=== PATIENT | female | born 1970 ===

== ENCOUNTER 2024-01-03 17:04 | Outpatient (RCR) | payer OTHER, SELFPAY ==
--- NOTE | 2024-01-04 08:51 | OPREHPOC ---
Outpatient Therapy Plan of Care This is a Multidisciplinary Plan of Care that may contain components documented by all disciplines (PT, OT, and ST.) PT Problem 1 PT Problem #1 Knowledge Deficit PT Goal 1 Goal patient to demonstrate independence with HEP Target Visit 6 PT Problem 2 PT Problem #2 Pain PT Goal 1 Goal 1. Patient to report highest pain at 2/10 2. Patient to report ability to sleep with no disturbance due to neck pain Target Visit 12 PT Problem 3 PT Problem #3 Impaired Range of Motion PT Goal 1 Goal Patient to demonstrate 60 deg of B cervical ROM to improve ability to look over her shoulder to drive and carry on conversation Target Visit 12 PT Problem 4 PT Problem #4 Impaired Strength PT Goal 1 Goal 1. Patient to demonstrate 5/5 B UE strength to return to lifting her grandkids 2. Patient to demonstrate 4+/5 B LE strength to improve ability to walk prolonged distances Target Visit 12 PT Problem 5 PT Problem #5 Impaired Functional Mobil PT Goal 1 Goal 1. Demonstrate 20% improvement on both NDI and LEFS 2. Patient to report ability to participate with her grandchildren at PLOF 3. Patient to report ability to return to house hold tasks with no numbness at the R foot Target Visit 12
--- NOTE | 2024-01-04 08:51 | PTOPEVAL1 ---
Assessment and note entered by Nori Solano DPT Evaluation Information Assessment Status Evaluation Diagnosis neck pain, R LE pain Onset 12/13/23 Subjective Information Patient reports in October her chimney collapsed. patient reports the bricks and plaster fell on her and then as she was trying to get out of the room she fell. she reports her worst pain is in the neck but she is also getting tingling and numbness in the R LE. She reports she has also been having some L knee pain and back pain but that has been as chronic issue that is improving. she reports over time her pain as increased since initial injury. patient report looking down to read, looking over her shoulder to drive and have conversation and sleeping. she has had x-rays that were negative. she states she would like to focus on neck pain. she reports she is not currently working but has grandkids to [employer]. Reported Pain Level Pain Score 3,0: Self Report Assessment PT Clinical Summary Ms. Lynn is a 53 year old female who presents to PT with cervical pain and R LE pain. She demonstrates decreased cervical ROM, hypomobiity of the cervical spine, decreased UE and LE strength and pain limiting her ability to read, drive, sleep and ambulate prolonged distances. She would benefit from skilled PT to address impairments and return to PLOF. Plan of Care Interventions Electrical Stimulation,Gait Training,Hot Pack/Cold Pack,Manual Therapy,Mechanical Traction,Neuro Re- education,Patient/Caregiver Educati,Therapeutic Activities,Therapeutic Exercise PT Services Indicated Yes Treatment Frequency and 2x weekly for 12 visits Duration These treatments will address the objective and functional deficits as defined above. The patient will be advanced safely and appropriately in order for the patient to progress towards his/her prior level of function. Additional exercises will be introduced and as well as a comprehensive home exercise program upon discharge, if needed, ?to ensure carryover of functional gains achieved in the clinic. This treatment plan has been reviewed and agreement upon by the patient.
--- NOTE | 2024-03-05 18:09 | OPREHPOC ---
Outpatient Therapy Plan of Care This is a Multidisciplinary Plan of Care that may contain components documented by all disciplines (PT, OT, and ST.) PT Problem 1 PT Problem #1 Knowledge Deficit PT Goal 1 Goal patient to demonstrate independence with HEP Target Visit 6 Progress Met PT Problem 2 PT Problem #2 Pain PT Goal 1 Goal 1. Patient to report highest pain at 2/10. met 2. Patient to report ability to sleep with no disturbance due to neck pain. Target Visit 18 Progress Partially Met PT Problem 3 PT Problem #3 Impaired Range of Motion PT Goal 1 Goal Patient to demonstrate 60 deg of B cervical ROM to improve ability to look over her shoulder to drive and carry on conversation Target Visit 12 Progress Met PT Problem 4 PT Problem #4 Impaired Strength PT Goal 1 Goal 1. Patient to demonstrate 5/5 B UE strength to return to lifting her grandkids 2. Patient to demonstrate 4+/5 B LE strength to improve ability to walk prolonged distances (DC) 3. 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 Demonstrate 20% improvement on both NDI and LEFS 2. Patient to report ability to participate with her grandchildren at PLOF 3. Patient to report ability to return to house hold tasks with no numbness at the R foot. met 4. patient to report reduction of all symptoms in the L UE to return to prior level functional activities. Target Visit 18 Progress Partially Met
--- NOTE | 2024-03-05 18:10 | PTOPREEVAL ---
Assessment and note entered by JT File, PT Evaluation Information Assessment Status Re-evaluation Diagnosis neck pain, R LE pain Onset 12/13/23 Subjective Information patient reports she feels pretty good today. she reports she still has pain, but it is less. she also reports she has less instances of her hand curling up. however, she still feels the symptoms into the L hand. she reports she does not feel she is healed, and would like to continue therapy because she believes it has been helping so far. she does report she has had symptoms into the L hand today and this week. she reports she no longer has back or LE symptoms/pain, and that those issues are healed. she reports she does need to leave early due to her ride having to be somewhere. Assessment PT Clinical Summary mrs. mirza presents to skilled PT for her 12th skilled therapy visit. since her initial evaluation, her lower back and LE pain/symptoms have healed. however, she continued to have neck and L UE pain and symptoms. she displays low pain, but more weakness of the L UE. as of this date, she has met goals for HEP performance, pain, and cervical rom. she has made partial progress towards other goals, but would benefit from continued skilled PT to focus on achievement of remaining goals to improve her quality of life and functional activity performance. Plan of Care Interventions Electrical Stimulation,Gait Training,Hot Pack/Cold Pack,Manual Therapy,Mechanical Traction,Neuro Re- education,Patient/Caregiver Educati,Therapeutic Activities,Therapeutic Exercise PT Services Indicated Yes Treatment Frequency and continue skilled PT 2x weekly for 6 more visits Duration These treatments will address the objective and functional deficits as defined above. The patient will be advanced safely and appropriately in order for the patient to progress towards his/her prior level of function. Additional exercises will be introduced and as well as a comprehensive home exercise program upon discharge, if needed, ?to ensure carryover of functional gains achieved in the clinic. This treatment plan has been reviewed and agreement upon by the patient.
--- NOTE | 2024-03-13 16:03 | PCPTNOTE ---
Patient cancelled session. She reports something came up and will be here next week.
--- NOTE | 2024-04-02 17:51 | OPREHPOC ---
Outpatient Therapy Plan of Care This is a Multidisciplinary Plan of Care that may contain components documented by all disciplines (PT, OT, and ST.) PT Problem 1 PT Problem #1 Knowledge Deficit PT Goal 1 Goal patient to demonstrate independence with HEP Target Visit 6 Progress Met PT Problem 2 PT Problem #2 Pain PT Goal 1 Goal 1. Patient to report highest pain at 2/10. met 2. Patient to report ability to sleep with no disturbance due to neck pain. Target Visit 18 Progress Met PT Problem 3 PT Problem #3 Impaired Range of Motion PT Goal 1 Goal Patient to demonstrate 60 deg of B cervical ROM to improve ability to look over her shoulder to drive and carry on conversation Target Visit 12 Progress Met PT Problem 4 PT Problem #4 Impaired Strength PT Goal 1 Goal 1. Patient to demonstrate 5/5 B UE strength to return to lifting her grandkids 2. Patient to demonstrate 4+/5 B LE strength to improve ability to walk prolonged distances. met ( DC) 3. 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 not met Target Visit 18 Progress Partially Met PT Problem 5 PT Problem #5 Impaired Functional Mobil PT Goal 1 Goal 1. Demonstrate 20% improvement on both NDI and LEFS. not met 2. Patient to report ability to participate with her grandchildren at [facility]. met 3. Patient to report ability to return to house hold tasks with no numbness at the R foot. met 4. patient to report reduction of all symptoms in the L UE to return to prior level functional activities. not met Target Visit 18 Progress Partially Met Comment .
--- NOTE | 2024-04-02 17:51 | PTOPDC ---
Assessment and note entered by JT File, PT Evaluation Information Assessment Status Discharge Diagnosis neck pain, R LE pain Onset 12/13/23 Subjective Information patient reports she feels Alright today. she reports she has little pain, but her symptoms in the L arm are still off and on. she reports it will be random with activities. she reports she still has curling into a claw of the L hand at times as well. she has not followed up with the MD yet, but reports now that her car is fixed she will be able to. Reported Pain Level Pain Score 0,2: Self Report Assessment PT Clinical Summary mrs. mirza presents to skilled PT for her 18th skilled PT visit. 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 she also rates herself worse on the NDI and LEFS today. however, she displays improvements in UE strength, tomato pulper operator strength, and activity tolerance since her last therapy visit. she will be DC'd from skilled PT today, and was instructed to return to MD for follow up and cervical MRI and/or nerve conduction test. Plan of Care PT Services Indicated Yes
== END 2024-04-02 23:59 | disposition home or self-care (01) ==
LOC: CHSPT 17:04
PROVIDERS: PCP Nurse Practitioner Family; Visit Provider Nurse Practitioner Family
DX: M79.604 Pain in right leg (principal); M54.2 Cervicalgia
CPT/HCPCS: 97014; 97110; 97112; 97140; 97161; G0283

== ENCOUNTER 2024-12-21 20:10 | Emergency (ER) | payer OTHER, SELFPAY ==
--- NOTE | ~2024-12-21 | XR_ITS ---
HISTORY: SLAMMED HAND IN DOOR 3 DAYS AGO. PAIN SWELLING TO LEFT INDEX COMPARISON: None TECHNIQUE: 2 views of the left second digit FINDINGS: No acute or subacute fracture. Joint spaces are relatively preserved and alignment is maintained. Soft tissue swelling without foreign body or significant calcification. Age-appropriate mineralization. IMPRESSION: Soft tissue swelling without acute fracture. Reviewed, dictated and finalized at location A. TIONSHIP ASSOCIATE
--- OUTSIDE RECORDS SUMMARY | 2024-12-21 20:13 | XMS_ITS | Clinical Summary ---
Author Organization [facility] Address [address] [place] [id number] Care Team Providers Care Health Care Recruiter Name Role Phone No, Physician Primary Care Provider [phone] Allergies No known active allergies Medications cyclobenzaprine (FLEXERIL) 10 mg tabletIndication s:Muscle Spasm Take 1 tablet (10 mg total) by mouth every 8 (eight) hours as needed for muscle spasms 12 tablet 11/07/2022 Active ibuprofen (ADVIL,MOTRIN) 600 mg tablet Take 1 tablet (600 mg total) by mouth 3 (three) times a day 18 tablet 11/07/2022 Active Social History Tobacco Use Types Packs/Day Years Used Date Smoking Tobacco: Never Tobacco Cessation:Counseling Given: Not Answered Personal Safety Answer Date Recorded Getting School Help Needed Not on file 01/10 Comments No Sex and Gender Information Value Date Recorded Sex Assigned at Not on file Legal Sex Female 9:26 AM 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 Gender Identity Not on file Sexual Orientation Not on file Obstetrics History Last Filed Vital Signs Vital Sign Reading Time Taken Comments Blood Pressure 167/95 11/07/2022 12:58 AM PRESSROOM FOREMAN Pulse 104 11/07/2022 12:58 AM PRESSROOM FOREMAN Temperature 36.6 C (97.9 F) 11/07/2022 12:58 AM PRESSROOM FOREMAN Respiratory Rate 18 11/07/2022 1:51 AM PRESSROOM FOREMAN Oxygen Saturation 98% 11/07/2022 12:58 AM PRESSROOM FOREMAN Inhaled Oxygen Concentration - - Weight 141.5 kg (312 lb) 11/07/2022 12:58 AM PRESSROOM FOREMAN Height 165.1 cm (5' 5 ) 11/07/2022 12:58 AM PRESSROOM FOREMAN Body Mass Index 51.92 11/07/2022 12:58 AM PRESSROOM FOREMAN Plan of Treatment Health Maintenance Due Date Last Done Comments Breast Cancer Screening-Mammogram 1970 Cervical Cancer Screening 1970 Colon Cancer Screening-Colonoscopy 1970 Depression Screening 1970 Hepatitis C Screening 1970 DTaP/Tdap/Td Vaccine (1 - Tdap) 1981 Hepatitis B Screening 1988 Regular Well Visit/Exam 18-64 1988 Zoster Vaccine (1 of 2) 2020 Influenza Vaccine (#1) 2024 Pneumococcal vaccine <65 Aged Out No longer eligible based on patient's age to complete this topic [facility] Care Teams Health Care Recruiter Relationship Specialty Start Date End Date No, Physician PCP - General 11/07/22
--- OUTSIDE RECORDS SUMMARY | 2024-12-21 20:13 | XMS_ITS | Clinical Summary ---
Author Organization [facility] Address [address] [place] [id number] Care Team Providers Care Red Lead Burner Name Role Phone None, Provider MD Primary Care Provider Unavaila ble Allergies No known active allergies Medications traMADol (ULTRAM) 50 MG tabletIndication s:Acute Pain < 7 Day Supply Indications : Acute Pain < 7 Day Supply 1-2 every 6 hours as needed for pain 20 tablet 09/26/2023 Active Active Problems No known active problems Social History Tobacco Use Types Packs/Day Years Used Date Smoking Tobacco: Never Smokeless Tobacco: Never Tobacco Cessation:Counseling Given: Not Answered Alcohol Use Standard Drinks/Week Comments Not Currently 0 (1 standard drink = 0.6 oz pur e alcohol) Comments No Sex and Gender Information Value Date Recorded Sex Assigned at Not on file Legal Sex Female 10:12 PM CDT Gender Identity Not on file Sexual Orientation Not on file Last Filed Vital Signs Vital Sign Reading Time Taken Comments Blood Pressure 161/100 09/26/2023 7:00 PM AZURE ARCHITECT Pulse 90 09/26/2023 6:04 PM AZURE ARCHITECT Temperature 36.7 C (98.1 F) 09/26/2023 6:04 PM AZURE ARCHITECT Respiratory Rate 20 09/26/2023 6:04 PM AZURE ARCHITECT Oxygen Saturation 100% 09/26/2023 7:00 PM AZURE ARCHITECT Inhaled Oxygen Concentration - - Weight 148.8 kg (328 lb) 09/26/2023 6:04 PM AZURE ARCHITECT Height 166.4 cm (5' 5.5 ) 09/26/2023 6:04 PM AZURE ARCHITECT Body Mass Index 53.75 09/26/2023 6:04 PM AZURE ARCHITECT Plan of Treatment Health Maintenance Due Date Last Done Comments Cervical Cancer Screening Pa p Smear (Age 30 to 64) Every 3 Years 1970 Colorectal Cancer Screening Colonoscopy (10 Years) 1970 Annual Physical 1973 Hepatitis C 1988 DTaP, Tdap and Td Vaccines ( 1 - Tdap) 1989 Hepatitis B Vaccines (1 of 3 - 19+ 3-dose series) 1989 Cervical Cancer Screening Pa p with HPV Testing (Age 30 to 64) Every 5 Years 2000 Cervical Cancer Screening with HPV 2000 Mammogram Screening 2010 Zoster Vaccines (1 of 2) 2020 COVID-19 Vaccine (2023-2 5 season) 2024 Influenza Adult (#1) 2024 Meningococcal B Vaccine Aged Out No l onger eligible based on patient's age to complete this topic Meningococcal Vaccine Aged Out No jarvis nisha eligible based on patient's age to complete this topic Pneumococcal Vaccine: Pediat rics (0 to 5 Years) and At-Risk Patients (6 to 64 Years) Aged Out No longer eligible b ased on patient's age to complete this topic RSV Immunizations Under 20 Months Aged Out No longer eligible based on patient's age to complete this topic Insurance [facility] Care Teams Red Lead Burner Relationship Specialty Start Date End Date None, Provider, MD PCP - General UNKNOWN PHYSICIAN SPECIALTY 09/26/23
--- OUTSIDE RECORDS SUMMARY | 2024-12-21 20:13 | XMS_ITS | Referral Summary ---
Author Organization [facility] Address [address] [place] [id number] Care Team Providers Care Aerodynamics Engineer Name Role Phone No, Physician Primary Care Provider [phone] Allergies No known active allergies Medications cyclobenzaprine [...] on file Legal Sex Female 9:26 AM HAT FINISHING MATERIALS PREPARER Gender Identity Not on file Sexual Orientation Not on file Last Filed Vital Signs Vital Sign Reading Time Taken Comments Blood Pressure 167/95 11/07/2022 12:58 AM HAT FINISHING MATERIALS PREPARER Pulse 104 11/07/2022 12:58 AM HAT FINISHING MATERIALS PREPARER Temperature 36.6 C (97.9 F) 11/07/2022 12:58 AM HAT FINISHING MATERIALS PREPARER Respiratory Rate 18 11/07/2022 1:51 AM HAT FINISHING MATERIALS PREPARER Oxygen Saturation 98% 11/07/2022 12:58 AM HAT FINISHING MATERIALS PREPARER Inhaled Oxygen Concentration - - Weight 141.5 kg (312 lb) 11/07/2022 12:58 AM HAT FINISHING MATERIALS PREPARER Height 165.1 cm (5' 5 ) 11/07/2022 12:58 AM HAT FINISHING MATERIALS PREPARER Body Mass Index 51.92 11/07/2022 12:58 AM HAT FINISHING MATERIALS PREPARER Plan of Treatment Not on file Insurance [employer] [employer] [facility] [facility] Care Teams Aerodynamics Engineer Relationship Specialty Start Date End Date No, Physician PCP - General 11/07/22
--- NOTE | 2024-12-21 20:40 | ED.DENTAL ---
HPI - Dental/Oral General Chief complaint: Dental/Oral Stated complaint: Toothache Time Seen by Provider: 12/21/24 20:40 Source: patient Mode of arrival: ambulatory Limitations: no limitations History of Present Illness HPI Narrative: Patient is a 54-year-old female with a left pointer finger inflammation and pain after slamming it in the door 3 days ago. Further the patient is here for a left upper jaw cracked tooth pain that is radiating to the left ear. MD Complaint: tooth pain Location: Tooth # ( Sixteen) Onset (ago): day(s) ( 3) Duration: constant Severity: moderate Severity scale (1-10): 5 Relieving factors: nothing Exacerbating factors: chewing, cold and drinking fluids Context: history of dental caries and trauma (mechanism) Associated symptoms: gum swelling and ear pain Treatment prior to arrival: none Related Data Allergies Allergy/AdvReac Type Severity Reaction Status Date / Time No Known Allergies Allergy Verified 12/13/23 15:41 Review of Systems Review of Systems: All systems reviewed & are unremarkable except as noted in HPI and below Constitutional: Constitutional: Reports no additional constitutional complaints Eyes: Eyes: Reports no additional eye complaints ENT: Reports system reviewed and no additional complaints, except as documented Cardiovascular: Cardiovascular: Reports no additional cardiovascular complaints Respiratory: Respiratory: Reports no additional respiratory complaints Gastrointestinal: Gastrointestinal: Reports no additional gastrointestinal complaints Genitourinary: Genitourinary: Reports no additional female genitourinary complaints Musculoskeletal: Musculoskeletal: Reports no additional musculoskeletal complaints Integumentary/Breasts: Skin/Breast: Reports system reviewed and no additional complaints, except as docu Neurologic: Reports system reviewed and no additional complaints, except as documented Psychiatric: Psychiatric: Reports no additional psychiatric complaints Endocrine: Endocrine: Reports no additional endocrine complaints Hematologic/Lymphatic: Hematologic/Lymphatic: Reports no additional hematologic/lymphatic complaints Allergic/Immunologic: Allergic/Immunologic: Reports no additional allergic/immunologic complaints PMFSH Family History Family History Sibling Anxiety Panic attacks Grandparent Diabetes mellitus Hypertension Social History Social History Smoking status: Never smoker Alcohol intake: never Substance use: never Exam Const: General: healthy appearing Nutritional Appearance: well nourished Orientation/consciousness: patient oriented x3 Limitations: no limitations HENMT: Head: normal to inspection Ears: external ears normal Face/Nose/Sinus: Normal external nose present Other: tooth 16 has a fracture and decay with local irritation and inflammation; no abscess Eyes: Conjunctivae: conjunctivae normal Pupils: Equal, round and reactive pupils present EOM: EOMs intact bilaterally Chest: Chest palpation & inspection: normal inspection of the chest Resp: Effort & Inspection: normal respiratory effort and not labored Auscultation: clear to auscultation bilaterally and no crackles Cardio: Rate: regular rate Rhythm: regular rhythm Heart sounds: no murmurs GI: Inspection: non-distended Auscultation: normal bowel sounds : General: Yes bladder normal to palpation Back/Spine/Pelvis: Back: no CVA tenderness Skin: General skin exam: No normal color Rashes: no rashes Wounds: wound noted Other: left pointer finger is red and inflamed and tender with swelling (not circumferential) and mild pus Neuro: General: patient oriented x3 Cranial nerves: Yes Nystagmus not present Speech: normal speech Gait exam (Neuro): Normal gait present Extrem: General: normal to inspection Psych: Mental Status: mental status grossly normal Affect: normal affect Attitude: cooperative Course Vital Signs Vital signs: Vital Signs Temperature 36.6 C 12/21/24 20:41 Pulse Rate 89 12/21/24 20:41 Respiratory Rate 18 12/21/24 20:41 Blood Pressure 151/88 H 12/21/24 20:41 Pulse Oximetry 98 12/21/24 20:41 Oxygen Delivery Room Air 12/21/24 20:41 Temperature 36.6 C 12/21/24 20:41 Pulse Rate 89 12/21/24 20:41 Respiratory Rate 18 12/21/24 20:41 Blood Pressure 151/88 H 12/21/24 20:41 Pulse Oximetry 98 12/21/24 20:41 Oxygen Delivery Room Air 12/21/24 20:41 MDM - Dental/Oral MDM Narrative Medical decision making narrative: patient is a 54-year-old female with a left pointer finger infection and left upper tooth fracture. We will take x-ray of the left finger. We will treat both accordingly. Imaging Data Attestation: I personally reviewed and interpreted this imaging study as follows: Radiologist's impression: X-ray left pointer finger shows IMPRESSION: Soft tissue swelling without acute fracture. Discharge Plan Discharge Clinical Impression: Cellulitis of finger of left hand, Maxilla pain Patient Disposition: Home, Self-Care Condition: Stable Instructions: Cellulitis (ED), Toothache (ED) Additional Instructions: please see a dentist as soon as possible. Make sure to come back to the ER if the finger gets worse. Patient Language: Sammarinese Prescriptions: New clindamycin HCl 300 mg capsule 300 mg PO TID 10 Days Qty: 30 0RF No Action lisinopril 10 mg tablet 10 mg PO DAILY Qty: 30 0RF cyclobenzaprine 10 mg tablet 10 mg PO .HS PRN (Reason: muscle spasm) Qty: 20 0RF diclofenac sodium 50 mg tablet,delayed release (DR/EC) 50 mg PO TID PRN (Reason: pain) Qty: 60 0RF Rx Instructions: Be sure to take with food. Follow-up/Referrals: Carolina Sun AUTOMOBILE RADIO REPAIRER [Primary Care Provider] - Time of Disposition: 21:52
[2024-12-21 20:41] VITALS: BP 151/88; PULSE 89; RESP 18; TEMP 36.6; O2SAT 98
--- OUTSIDE RECORDS SUMMARY | 2024-12-21 20:48 | XMS_ITS | Referral Summary ---
Author Organization [facility] Address [address] [place] [id number] Care Team Providers Care Spares Scheduler Name Role Phone No, Physician Primary Care Provider [phone] Allergies No known active allergies Medications cyclobenzaprine [...] on file Legal Sex Female 9:26 AM SPARK PLUG TESTER Gender Identity Not on file Sexual Orientation Not on file Last Filed Vital Signs Vital Sign Reading Time Taken Comments Blood Pressure 167/95 11/07/2022 12:58 AM SPARK PLUG TESTER Pulse 104 11/07/2022 12:58 AM SPARK PLUG TESTER Temperature 36.6 C (97.9 F) 11/07/2022 12:58 AM SPARK PLUG TESTER Respiratory Rate 18 11/07/2022 1:51 AM SPARK PLUG TESTER Oxygen Saturation 98% 11/07/2022 12:58 AM SPARK PLUG TESTER Inhaled Oxygen Concentration - - Weight 141.5 kg (312 lb) 11/07/2022 12:58 AM SPARK PLUG TESTER Height 165.1 cm (5' 5 ) 11/07/2022 12:58 AM SPARK PLUG TESTER Body Mass Index 51.92 11/07/2022 12:58 AM SPARK PLUG TESTER Plan of Treatment Not on file Insurance [employer] [facility] Care Teams Spares Scheduler Relationship Specialty Start Date End Date No, Physician PCP - General 11/07/22
--- OUTSIDE RECORDS SUMMARY | 2024-12-21 20:48 | XMS_ITS | Clinical Summary ---
Author Organization [facility] Address [address] [place] [id number] Care Team Providers Care Gis Manager Name Role Phone No, Physician Primary Care Provider [phone] Allergies No known active allergies Medications cyclobenzaprine [...] on file Legal Sex Female 9:26 AM PRODUCT CONSULTANT Gender Identity Not on file Sexual Orientation Not on file Obstetrics History Last Filed Vital Signs Vital Sign Reading Time Taken Comments Blood Pressure 167/95 11/07/2022 12:58 AM PRODUCT CONSULTANT Pulse 104 11/07/2022 12:58 AM PRODUCT CONSULTANT Temperature 36.6 C (97.9 F) 11/07/2022 12:58 AM PRODUCT CONSULTANT Respiratory Rate 18 11/07/2022 1:51 AM PRODUCT CONSULTANT Oxygen Saturation 98% 11/07/2022 12:58 AM PRODUCT CONSULTANT Inhaled Oxygen Concentration - - Weight 141.5 kg (312 lb) 11/07/2022 12:58 AM PRODUCT CONSULTANT Height 165.1 cm (5' 5 ) 11/07/2022 12:58 AM PRODUCT CONSULTANT Body Mass Index 51.92 11/07/2022 12:58 AM PRODUCT CONSULTANT Plan of Treatment Health Maintenance Due Date [...] patient's age to complete this topic [facility] Care Teams Gis Manager Relationship Specialty Start Date End Date No, Physician PCP - General 11/07/22
--- OUTSIDE RECORDS SUMMARY | 2024-12-21 20:49 | XMS_ITS | Clinical Summary ---
Author Organization [facility] Address [address] [place] [address] Care Team Providers Care Saddle Cutter Name Role Phone None, Provider MD Primary [...] Comments Blood Pressure 161/100 09/26/2023 7:00 PM CASHIER RECEPTIONIST Pulse 90 09/26/2023 6:04 PM CASHIER RECEPTIONIST Temperature 36.7 C (98.1 F) 09/26/2023 6:04 PM CASHIER RECEPTIONIST Respiratory Rate 20 09/26/2023 6:04 PM CASHIER RECEPTIONIST Oxygen Saturation 100% 09/26/2023 7:00 PM CASHIER RECEPTIONIST Inhaled Oxygen Concentration - - Weight 148.8 kg (328 lb) 09/26/2023 6:04 PM CASHIER RECEPTIONIST Height 166.4 cm (5' 5.5 ) 09/26/2023 6:04 PM CASHIER RECEPTIONIST Body Mass Index 53.75 09/26/2023 6:04 PM CASHIER RECEPTIONIST Plan of Treatment Health Maintenance Due Date [...] patient's age to complete this topic Insurance [facility] Care Teams Saddle Cutter Relationship Specialty Start Date End Date None, Provider, MD PCP - General UNKNOWN PHYSICIAN SPECIALTY 09/26/23
[2024-12-21] MEDS: CLINDAMYCIN HCL 150 MG CAP 300 MG PO (20:55)
[2024-12-21] MEDS: TETANUS,DIPHTHERIA,AC PERTUSSIS ADULT 0.5 ML (ADACEL) IM (20:58)
[2024-12-21] MEDS: ACETAMINOPHEN 500 MG TABLET 1000 MG PO (21:57)
[2024-12-21 22:06] VITALS: BP 140/85; PULSE 97; RESP 18; TEMP 36.6; O2SAT 98
== END 2024-12-21 22:06 | disposition home or self-care (01) ==
PROVIDERS: Emergency Provider Emergency Medicine; PCP Nurse Practitioner Family
DX: L03.012 Cellulitis of left finger (principal); R68.84 Jaw pain; Z23 Encounter for immunization
CPT/HCPCS: 73140; 90471; 90715; 99283; A9270

== ENCOUNTER 2025-01-09 01:32 | Emergency (ER) | payer OTHER, SELFPAY ==
[2025-01-09 01:35] VITALS: BP 179/98; PULSE 85; RESP 18; TEMP 35.7; O2SAT 98
--- OUTSIDE RECORDS SUMMARY | 2025-01-09 01:35 | XMS_ITS | Clinical Summary ---
Author Organization [facility] Address [address] [place] [id number] Care Team Providers Care Street Commissioner Name Role Phone No, Physician Primary Care Provider [phone] Allergies No known active allergies Medications cyclobenzaprine [...] on file Legal Sex Female 9:26 AM NEWSPAPER DISTRIBUTOR SUPERVISOR Gender Identity Not on file Sexual Orientation Not on file Obstetrics History Last Filed Vital Signs Vital Sign Reading Time Taken Comments Blood Pressure 167/95 11/07/2022 12:58 AM NEWSPAPER DISTRIBUTOR SUPERVISOR Pulse 104 11/07/2022 12:58 AM NEWSPAPER DISTRIBUTOR SUPERVISOR Temperature 36.6 C (97.9 F) 11/07/2022 12:58 AM NEWSPAPER DISTRIBUTOR SUPERVISOR Respiratory Rate 18 11/07/2022 1:51 AM NEWSPAPER DISTRIBUTOR SUPERVISOR Oxygen Saturation 98% 11/07/2022 12:58 AM NEWSPAPER DISTRIBUTOR SUPERVISOR Inhaled Oxygen Concentration - - Weight 141.5 kg (312 lb) 11/07/2022 12:58 AM NEWSPAPER DISTRIBUTOR SUPERVISOR Height 165.1 cm (5' 5 ) 11/07/2022 12:58 AM NEWSPAPER DISTRIBUTOR SUPERVISOR Body Mass Index 51.92 11/07/2022 12:58 AM NEWSPAPER DISTRIBUTOR SUPERVISOR Plan of Treatment Health Maintenance Due Date [...] patient's age to complete this topic [facility] Care Teams Street Commissioner Relationship Specialty Start Date End Date No, Physician PCP - General 11/07/22
--- OUTSIDE RECORDS SUMMARY | 2025-01-09 01:35 | XMS_ITS | Referral Summary ---
Author Organization [facility] Address [address] [place] [phone] Care Team Providers Care Product Support Manager Name Role Phone No, Physician Primary Care Provider [phone] Allergies No known active allergies Medications cyclobenzaprine [...] on file Legal Sex Female 9:26 AM CANVAS SHRINKER Gender Identity Not on file Sexual Orientation Not on file Last Filed Vital Signs Vital Sign Reading Time Taken Comments Blood Pressure 167/95 11/07/2022 12:58 AM CANVAS SHRINKER Pulse 104 11/07/2022 12:58 AM CANVAS SHRINKER Temperature 36.6 C (97.9 F) 11/07/2022 12:58 AM CANVAS SHRINKER Respiratory Rate 18 11/07/2022 1:51 AM CANVAS SHRINKER Oxygen Saturation 98% 11/07/2022 12:58 AM CANVAS SHRINKER Inhaled Oxygen Concentration - - Weight 141.5 kg (312 lb) 11/07/2022 12:58 AM CANVAS SHRINKER Height 165.1 cm (5' 5 ) 11/07/2022 12:58 AM CANVAS SHRINKER Body Mass Index 51.92 11/07/2022 12:58 AM CANVAS SHRINKER Plan of Treatment Not on file Insurance [facility] [place] Care Teams Product Support Manager Relationship Specialty Start Date End Date No, Physician PCP - General 11/07/22
--- OUTSIDE RECORDS SUMMARY | 2025-01-09 01:35 | XMS_ITS | Clinical Summary ---
Author Organization [facility] Address [address] [place] [id number] Care Team Providers Care Patient Biller Name Role Phone None, Provider MD Primary [...] Comments Blood Pressure 161/100 09/26/2023 7:00 PM PATIENT SAFETY OFFICER Pulse 90 09/26/2023 6:04 PM PATIENT SAFETY OFFICER Temperature 36.7 C (98.1 F) 09/26/2023 6:04 PM PATIENT SAFETY OFFICER Respiratory Rate 20 09/26/2023 6:04 PM PATIENT SAFETY OFFICER Oxygen Saturation 100% 09/26/2023 7:00 PM PATIENT SAFETY OFFICER Inhaled Oxygen Concentration - - Weight 148.8 kg (328 lb) 09/26/2023 6:04 PM PATIENT SAFETY OFFICER Height 166.4 cm (5' 5.5 ) 09/26/2023 6:04 PM PATIENT SAFETY OFFICER Body Mass Index 53.75 09/26/2023 6:04 PM PATIENT SAFETY OFFICER Plan of Treatment Health Maintenance Due Date [...] patient's age to complete this topic Insurance [facility] Care Teams Patient Biller Relationship Specialty Start Date End Date None, Provider, MD PCP - General UNKNOWN PHYSICIAN SPECIALTY 09/26/23
--- NOTE | 2025-01-09 01:41 | ED_ITS ---
HPI - Female Genitourinary General Chief complaint: Urogenital-Female Stated complaint: UTI Time Seen by Provider: 01/09/25 01:33 Source: patient Mode of arrival: ambulatory Limitations: no limitations History of Present Illness HPI Narrative: this is a 54-year-old female with history of hypertension presents with some dysuria and frequency with no flank pain no fever chills does have bladder pressure suprapubic pressure no nausea vomiting. MD elicited complaint: dysuria Related Data Allergies Allergy/AdvReac Type Severity Reaction Status Date / Time No Known Allergies Allergy Verified 12/13/23 15:41 Review of Systems Review of Systems: All systems reviewed & are unremarkable except as noted in HPI and below PMFSH Family History Family History Sibling Anxiety Panic attacks Grandparent Diabetes mellitus Hypertension Social History Social History Smoking status: Never smoker Alcohol intake: never Substance use: never Exam Const: General: healthy appearing and no acute distress Nutritional Appearance: well nourished Orientation/consciousness: patient oriented x3 Limitations: no limitations Neck: Neck: normal visual inspection, no lymphadenopathy and no meningeal signs Chest: Chest palpation & inspection: normal inspection of the chest Resp: Effort & Inspection: normal respiratory effort Auscultation: clear to auscultation bilaterally Cardio: Rate: regular rate Rhythm: regular rhythm GI: GI Palp: Yes Soft to palpation : General: Yes Bladder palpation abnormal ( Suprapubic tenderness of palpation) and Yes no CVA tenderness Skin: General skin exam: normal color Course Course Emergency Course: urinalysis performed and reviewed with patient, dose of Macrobid was administered p.o.. Vital Signs Vital signs: Vital Signs Temperature 35.7 C L 01/09/25 01:35 Pulse Rate 85 01/09/25 01:35 Respiratory Rate 18 01/09/25 01:35 Blood Pressure 179/98 H 01/09/25 01:35 Pulse Oximetry 98 01/09/25 01:35 Oxygen Delivery Room Air 01/09/25 01:35 Temperature 35.7 C L 01/09/25 01:35 Pulse Rate 88 01/09/25 02:17 Respiratory Rate 18 01/09/25 02:17 Blood Pressure 170/89 H 01/09/25 02:17 Pulse Oximetry 98 01/09/25 02:17 Oxygen Delivery Room Air 01/09/25 02:17 MDM - Female Genitourinary Lab Data Labs: Lab Results 01/09/25 Range/Units 01:52 Urine Color Light yellow (Yellow) Urine Appearance Clear (Clear) Urine pH 6.0 (5.0-8.0) Ur Specific Butterfield 1.025 H (1.010-1.020) Urine Protein Negative (Negative) Urine Glucose (UA) Negative (Negative) Urine Ketones Negative (Negative) Ur Blood (Man) Negative (Negative) Urine Nitrate Negative (Negative) Urine Bilirubin Negative (Negative) Urine Urobilinogen 0.2 (0.2-1.0) mg/dL Leukocyte Esterase Rfl 1+ H (Negative) MYRA/UL Urine RBC 0-2 (0-2) /hpf Urine WBC 16-20 H (0-3) /hpf Ur Squamous Epith Cells Rare (Few) /hpf Urine Bacteria 1+ H (None) /hpf Critical Care Time Critical Care Time Critical Care Time: No Discharge Plan Discharge Clinical Impression: Urinary tract infection Patient Disposition: Home, Self-Care Condition: Stable Instructions: Antibiotic Form, Urinary Tract Infection in Women (ED) Additional Instructions: advised take medication as prescribed and follow-up with primary care physician if symptoms persist or worsen. Patient Language: Persian Prescriptions: New nitrofurantoin monohyd/m-cryst [Macrobid] 100 mg capsule 100 mg PO Q12H 7 Days Qty: 14 0RF Rx Instructions: must administer with a meal/food No Action lisinopril 10 mg tablet 10 mg PO DAILY Qty: 30 0RF Follow-up/Referrals: Carolina Sun NP [Primary Care Provider] - Time of Disposition: 01:44
[2025-01-09] MEDS: NITROFURANTOIN MONOHYD MACROCR 100 MG CAP PO (01:50)
[2025-01-09 01:58] LABS: Add Urine Microscopic? YES; Appearance Urine Clear (Clear); Bilirubin Urine Negative (Negative); Blood Urine Negative (Negative); Color Urine Light Yellow (Yellow); Glucose Urine UA Negative (Negative); Ketones Urine Negative (Negative); Leukocyte Esterase Ur 1+ LEU/UL (Negative); Nitrate Urine Negative (Negative); Protein Urine Negative (Negative); Specific Grav Ur 1.025 (1.010-1.020); Urobilinogen Urine 0.2 mg/dL (0.2-1.0)
[2025-01-09 02:04] LABS: Bacteria Urine 1+ /hpf; RBC Urine 0-2 /hpf (0-2); Squamous Epithelial Cell Urine Rare /hpf (Few); WBC Urine 16-20 /hpf (0-3)
[2025-01-09 02:17] VITALS: BP 170/89; PULSE 88; RESP 18; O2SAT 98
--- OUTSIDE RECORDS SUMMARY | 2025-01-09 02:24 | XMS_ITS | Clinical Summary ---
Author Organization [facility] Address [address] [place] [id number] Care Team Providers Care Assembler Wet Wash Name Role Phone None, Provider MD Primary [...] Comments Blood Pressure 161/100 09/26/2023 7:00 PM BUTCHER APPRENTICE Pulse 90 09/26/2023 6:04 PM BUTCHER APPRENTICE Temperature 36.7 C (98.1 F) 09/26/2023 6:04 PM BUTCHER APPRENTICE Respiratory Rate 20 09/26/2023 6:04 PM BUTCHER APPRENTICE Oxygen Saturation 100% 09/26/2023 7:00 PM BUTCHER APPRENTICE Inhaled Oxygen Concentration - - Weight 148.8 kg (328 lb) 09/26/2023 6:04 PM BUTCHER APPRENTICE Height 166.4 cm (5' 5.5 ) 09/26/2023 6:04 PM BUTCHER APPRENTICE Body Mass Index 53.75 09/26/2023 6:04 PM BUTCHER APPRENTICE Plan of Treatment Health Maintenance Due Date [...] patient's age to complete this topic Insurance [facility] Care Teams Assembler Wet Wash Relationship Specialty Start Date End Date None, Provider, MD PCP - General UNKNOWN PHYSICIAN SPECIALTY 09/26/23
--- OUTSIDE RECORDS SUMMARY | 2025-01-09 02:24 | XMS_ITS | Clinical Summary ---
Author Organization [facility] Address [address] [place] [id number] Care Team Providers Care Senior Dentist Name Role Phone No, Physician Primary Care Provider [phone] Allergies No known active allergies Medications cyclobenzaprine [...] on file Legal Sex Female 9:26 AM RENTAL CAR PORTER Gender Identity Not on file Sexual Orientation Not on file Obstetrics History Last Filed Vital Signs Vital Sign Reading Time Taken Comments Blood Pressure 167/95 11/07/2022 12:58 AM RENTAL CAR PORTER Pulse 104 11/07/2022 12:58 AM RENTAL CAR PORTER Temperature 36.6 C (97.9 F) 11/07/2022 12:58 AM RENTAL CAR PORTER Respiratory Rate 18 11/07/2022 1:51 AM RENTAL CAR PORTER Oxygen Saturation 98% 11/07/2022 12:58 AM RENTAL CAR PORTER Inhaled Oxygen Concentration - - Weight 141.5 kg (312 lb) 11/07/2022 12:58 AM RENTAL CAR PORTER Height 165.1 cm (5' 5 ) 11/07/2022 12:58 AM RENTAL CAR PORTER Body Mass Index 51.92 11/07/2022 12:58 AM RENTAL CAR PORTER Plan of Treatment Health Maintenance Due Date [...] patient's age to complete this topic [facility] Care Teams Senior Dentist Relationship Specialty Start Date End Date No, Physician PCP - General 11/07/22
--- OUTSIDE RECORDS SUMMARY | 2025-01-09 02:24 | XMS_ITS | Referral Summary ---
Author Organization [facility] Address [address] [place] [id number] Care Team Providers Care Metal Furniture Glazier Name Role Phone No, Physician Primary Care Provider [phone] Allergies No known active allergies Medications cyclobenzaprine [...] on file Legal Sex Female 9:26 AM COOK'S ASSISTANT Gender Identity Not on file Sexual Orientation Not on file Last Filed Vital Signs Vital Sign Reading Time Taken Comments Blood Pressure 167/95 11/07/2022 12:58 AM COOK'S ASSISTANT Pulse 104 11/07/2022 12:58 AM COOK'S ASSISTANT Temperature 36.6 C (97.9 F) 11/07/2022 12:58 AM COOK'S ASSISTANT Respiratory Rate 18 11/07/2022 1:51 AM COOK'S ASSISTANT Oxygen Saturation 98% 11/07/2022 12:58 AM COOK'S ASSISTANT Inhaled Oxygen Concentration - - Weight 141.5 kg (312 lb) 11/07/2022 12:58 AM COOK'S ASSISTANT Height 165.1 cm (5' 5 ) 11/07/2022 12:58 AM COOK'S ASSISTANT Body Mass Index 51.92 11/07/2022 12:58 AM COOK'S ASSISTANT Plan of Treatment Not on file Insurance [place] PPO [facility] Care Teams Metal Furniture Glazier Relationship Specialty Start Date End Date No, Physician PCP - General 11/07/22
--- NOTE | 2025-01-11 12:48 | PC.NURSE ---
PRELIMINARY URINE CULTURE CLEAN CATCH GRAM NEGATIVE BACILLI ISOLATED PT ON MACROBID 100 MG BID FOR 7 DAYS AND RECEIVED 1ST DOSE IN ER PER DR PATEL WILL WAIT FOR FINAL CULTURE FOR SUSCEPTIBILITY
--- NOTE | 2025-01-12 12:47 | PC.NURSE ---
FINAL URINE CULTURE RESULTS; ISOLATE 1 50,000-100,000 CFU/ML OF ESCHERICHIA COLI. NO CHANGE IN TX NEEDED PER DR DAY AND C&S
== END 2025-01-09 02:17 | disposition home or self-care (01) ==
LOC: CHSED 02:22
PROVIDERS: Emergency Provider Emergency Medicine; PCP Nurse Practitioner Family
DX: N39.0 Urinary tract infection, site not specified (principal); I10 Essential (primary) hypertension
CPT/HCPCS: 81001; 87077; 87086; 87088; 87186; 99283; A9270

== ENCOUNTER 2025-08-03 04:44 | Emergency (ER) | payer OTHER, SELFPAY ==
--- OUTSIDE RECORDS SUMMARY | 2025-08-03 04:46 | XMS_ITS | Clinical Summary ---
Author Organization [facility] Address [address] [place] [address] Care Team Providers Care Hydraulic Rockbreaker Operator Name Role Phone None, Provider MD Primary [...] Comments Blood Pressure 161/100 09/26/2023 7:00 PM MARKETING SUPPORT COORDINATOR Pulse 90 09/26/2023 6:04 PM MARKETING SUPPORT COORDINATOR Temperature 36.7 C (98.1 F) 09/26/2023 6:04 PM MARKETING SUPPORT COORDINATOR Respiratory Rate 20 09/26/2023 6:04 PM MARKETING SUPPORT COORDINATOR Oxygen Saturation 100% 09/26/2023 7:00 PM MARKETING SUPPORT COORDINATOR Inhaled Oxygen Concentration - - Weight 148.8 kg (328 lb) 09/26/2023 6:04 PM MARKETING SUPPORT COORDINATOR Height 166.4 cm (5' 5.5) 09/26/2023 6:04 PM MARKETING SUPPORT COORDINATOR Body Mass Index 53.75 09/26/2023 6:04 PM MARKETING SUPPORT COORDINATOR Plan of Treatment Health Maintenance Due Date [...] Screening with HPV 2000 Mammogram Screening 2010 Pneumococcal Vaccine: 50+ Ye ars (1 of 1 - PCV) 2020 Zoster Vaccines (1 of 2) 2020 COVID-19 Vaccine (1 - 2023-2 5 season) 2025 Influenza Adult (#1) 2025 Meningococcal B Vaccine Aged Out No l onger eligible based on patient's age to complete this topic Meningococcal Vaccine Aged Out No jarvis nisha eligible based on patient's age to complete this topic RSV Immunizations Under 20 Months Aged Out No longer eligible based on patient's age to complete this topic Insurance [employer]ICA[employer] Care Teams Hydraulic Rockbreaker Operator Relationship Specialty Start Date End Date None, Provider, PCP - General UNKNOWN PHYSICIAN SPECIALTY 09/26/23
[2025-08-03 04:48] VITALS: BP 166/93; PULSE 79; RESP 20; TEMP 36.6; O2SAT 97
--- NOTE | 2025-08-03 04:55 | ED_ITS ---
HPI - Dental/Oral General Chief complaint: Dental/Oral Stated complaint: dental pain Time Seen by Provider: 08/03/25 04:55 Source: patient Mode of arrival: ambulatory Limitations: no limitations History of Present Illness HPI Narrative: Patient is a 55-year-old female with a left upper jaw pain after eating seafood. She was eating shellfish and it got wedged into the left upper jaw with decayed teeth and cause severe pain a few days ago. The pain is continued but the bleeding has stopped. She has an appointment in the next few weeks to see a dentist. MD Complaint: tooth pain Location: Tooth # (Fifteen and 16) Onset (ago): day(s) (3) Duration: constant Severity: moderate Severity scale (1-10): 6 Relieving factors: nothing Exacerbating factors: chewing, cold, heat and drinking fluids Context: history of dental caries and poor dental care Associated symptoms: gum swelling Treatment prior to arrival: none Related Data Allergies Allergy/AdvReac Type Severity Reaction Status Date / Time No Known Allergies Allergy Verified 12/13/23 15:41 Review of Systems Review of Systems: All systems reviewed & are unremarkable except as noted in HPI and below Constitutional: Constitutional: Reports no additional constitutional complaints Eyes: Eyes: Reports no additional eye complaints ENT: Reports system reviewed and no additional complaints, except as documented Cardiovascular: Cardiovascular: Reports no additional cardiovascular complaints Respiratory: Respiratory: Reports no additional respiratory complaints Gastrointestinal: Gastrointestinal: Reports no additional gastrointestinal complaints Genitourinary: Genitourinary: Reports no additional female genitourinary complaints Musculoskeletal: Musculoskeletal: Reports no additional musculoskeletal complaints Integumentary/Breasts: Skin/Breast: Reports system reviewed and no additional complaints, except as docu Neurologic: Reports system reviewed and no additional complaints, except as documented Psychiatric: Psychiatric: Reports no additional psychiatric complaints Endocrine: Endocrine: Reports no additional endocrine complaints Hematologic/Lymphatic: Hematologic/Lymphatic: Reports no additional hematologic/lymphatic complaints Allergic/Immunologic: Allergic/Immunologic: Reports no additional allergic/immunologic complaints [facility] Family History Family History Sibling Anxiety Panic attacks Grandparent Diabetes mellitus Hypertension Social History Social History Smoking status: Never smoker Alcohol intake: never Substance use: never Exam Const: General: healthy appearing Nutritional Appearance: well nourished Orientation/consciousness: patient oriented x3 HENMT: Head: normal to inspection Ears: external ears normal Face/Nose/Sinus: Normal external nose present Teeth and gingiva: abnormal tooth and associated gingiva Other: Tooth 15. And 16 have severe decay and local gingivitis without abscess Eyes: Conjunctivae: conjunctivae normal Pupils: Equal, round and reactive pupils present EOM: EOMs intact bilaterally Neck: Neck: normal visual inspection Chest: Chest palpation & inspection: normal inspection of the chest Resp: Effort & Inspection: normal respiratory effort and not labored Auscultation: clear to auscultation bilaterally and no crackles Cardio: Rate: regular rate Rhythm: regular rhythm Heart sounds: no murmurs GI: Inspection: non-distended GI Palp: Yes Soft to palpation and No Tenderness to palpation present (GI) Auscultation: normal bowel sounds : General: Yes bladder normal to palpation Back/Spine/Pelvis: Back: no CVA tenderness Skin: General skin exam: normal color Rashes: no rashes Wounds: no wounds Neuro: General: patient oriented x3, moves all extremities and no meningeal signs Extrem: General: normal to inspection, no clubbing, cyanosis or edema and no pedal edema Psych: Mental Status: mental status grossly normal Affect: normal affect Attitude: cooperative Course Vital Signs Vital signs: Vital Signs Temperature 36.6 C 08/03/25 04:48 Pulse Rate 79 08/03/25 04:48 Respiratory Rate 20 08/03/25 04:48 Blood Pressure 166/93 H 08/03/25 04:48 Pulse Oximetry 97 08/03/25 04:48 Oxygen Delivery Room Air 08/03/25 04:48 Temperature 36.6 C 08/03/25 04:48 Pulse Rate 79 08/03/25 04:48 Respiratory Rate 20 08/03/25 04:48 Blood Pressure 166/93 H 08/03/25 04:48 Pulse Oximetry 97 08/03/25 04:48 Oxygen Delivery Room Air 08/03/25 04:48 MDM - Dental/Oral MDM Narrative Medical decision making narrative: Patient is a 55-year-old female with dental pain in the maxilla left upper over the past 3 days. She has a dentist appointment upcoming. Toradol. Augmentin. Tramadol. Discharge Plan Discharge Clinical Impression: Maxilla pain Patient Disposition: Home Condition: Stable Instructions: Antibiotic Form, Acute Dental Trauma (ED), Toothache (ED) Additional Instructions: Please see dentist as soon as possible. Patient Language: North Korean Prescriptions: New amoxicillin-pot clavulanate 875-125 mg tablet 1 tablet PO BID 10 Days Qty: 20 0RF tramadol 50 mg tablet 50 mg PO Q8H PRN (Reason: pain) Qty: 20 0RF No Action nitrofurantoin monohyd/m-cryst [Macrobid] 100 mg capsule 100 mg PO Q12H 7 Days Qty: 14 0RF Rx Instructions: must administer with a meal/food lisinopril 10 mg tablet 10 mg PO DAILY Qty: 30 0RF Follow-up/Referrals: Carolina Sun NP [Primary Care Provider, [facility]] Time of Disposition: 05:13
--- NOTE | 2025-08-03 05:00 | PC.NURSE ---
DR LILLY AT THE BEDSIDE
[2025-08-03] MEDS: KETOROLAC (*BKC) 60 MG/2 ML VIAL IM (05:16)
--- OUTSIDE RECORDS SUMMARY | 2025-08-03 05:17 | XMS_ITS | Clinical Summary ---
Author Organization [facility] Address [address] [place] [address] Care Team Providers Care Tour Agent Name Role Phone None, Provider MD Primary [...] Comments Blood Pressure 161/100 09/26/2023 7:00 PM GLOBAL MARKETING SPECIALIST Pulse 90 09/26/2023 6:04 PM GLOBAL MARKETING SPECIALIST Temperature 36.7 C (98.1 F) 09/26/2023 6:04 PM GLOBAL MARKETING SPECIALIST Respiratory Rate 20 09/26/2023 6:04 PM GLOBAL MARKETING SPECIALIST Oxygen Saturation 100% 09/26/2023 7:00 PM GLOBAL MARKETING SPECIALIST Inhaled Oxygen Concentration - - Weight 148.8 kg (328 lb) 09/26/2023 6:04 PM GLOBAL MARKETING SPECIALIST Height 166.4 cm (5' 5.5) 09/26/2023 6:04 PM GLOBAL MARKETING SPECIALIST Body Mass Index 53.75 09/26/2023 6:04 PM GLOBAL MARKETING SPECIALIST Plan of Treatment Health Maintenance Due Date [...] this topic Insurance [employer]ICA[employer] Care Teams Tour Agent Relationship Specialty Start Date End Date None, Provider, PCP - General UNKNOWN PHYSICIAN SPECIALTY 09/26/23
--- OUTSIDE RECORDS SUMMARY | 2025-08-03 05:17 | XMS_ITS | Clinical Summary ---
Author Organization [facility] Address [address] [place] [id number] Care Team Providers Care Relocation Director Name Role Phone No, Physician Primary Care Provider [phone] Allergies No known active allergies Medications cyclobenzaprine [...] on file Legal Sex Female 9:26 AM [employer] Gender Identity Not on file Sexual Orientation Not on file Obstetrics History Last Filed Vital Signs Vital Sign Reading Time Taken Comments Blood Pressure 167/95 11/07/2022 12:58 AM JAIL GUARD Pulse 104 11/07/2022 12:58 AM JAIL GUARD Temperature 36.6 C (97.9 F) 11/07/2022 12:58 AM JAIL GUARD Respiratory Rate 18 11/07/2022 1:51 AM JAIL GUARD Oxygen Saturation 98% 11/07/2022 12:58 AM JAIL GUARD Inhaled Oxygen Concentration - - Weight 141.5 kg (312 lb) 11/07/2022 12:58 AM JAIL GUARD Height 165.1 cm (5' 5) 11/07/2022 12:58 AM JAIL GUARD Body Mass Index 51.92 11/07/2022 12:58 AM JAIL GUARD Plan of Treatment Health Maintenance Due Date Last Done Comments Breast Cancer Screening-Mammogram 1970 Cervical Cancer Screening 1970 Colon Cancer Screening-Colonoscopy 1970 Depression Screening 1970 Hepatitis C Screening 1970 DTaP/Tdap/Td Vaccine (1 - Tdap) 1981 Hepatitis B Screening 1988 Regular Well Visit/Exam 18-64 1988 Zoster Vaccine (1 of 2) 2020 Influenza Vaccine (#1) 2025 Pneumococcal vaccine <65 Aged Out No longer eligible based on patient's age to complete this topic [facility] Care Teams Relocation Director Relationship Specialty Start Date End Date No, Physician PCP - General 11/07/22
[2025-08-03 05:42] VITALS: BP 162/90; PULSE 78; RESP 18; O2SAT 100
== END 2025-08-03 05:42 | disposition home or self-care (01) ==
LOC: CHSED 05:15
PROVIDERS: Emergency Provider Emergency Medicine; PCP Nurse Practitioner Family
DX: K08.89 Other specified disorders of teeth and supporting structures (principal)
CPT/HCPCS: 96372; 99283; A9270; J1885